=== PATIENT | male | born 1980 | race Caucasian/White ===

== ENCOUNTER → 2018-07-24 11:47 | Outpatient (CLI) | payer SELFPAY ==
--- NOTE | 2018-07-24 | DI.CT.S_ITS ---
PROCEDURE: CT CHEST WO CON INDICATIONS: Pneumonia, unspecified organism TECHNIQUE: Noncontrast 5 mm thick sections acquired from the pulmonary apices to the posterior costophrenic angles. 7 mm thick coronal and sagittal MIP reformats were then acquired. For radiation dose reduction, the following was used: automated exposure control, adjustment of mA and/or kV according to patient size. COMPARISON: None. FINDINGS: Image quality: Excellent. Lungs and pleura: There is air space in the lingula consistent with pneumonia. No pleural effusions or pneumothorax. Central and peripheral airways are patent and normal in caliber. Mediastinum: Heart size is normal. No pericardial effusion. No mediastinal adenopathy by size criteria. Thoracic aorta and central pulmonary arteries are normal in size. Esophagus is normal in caliber. Tiny hiatal hernia. Bones and chest wall: No suspicious bony lesions. No vertebral body compression fractures. No axillary or supraclavicular adenopathy by size criteria. Thyroid gland is normal. Abdomen: There is a 2.0 cm simple consistent in the superior pole of left kidney. Visualized upper abdominal solid organs and bowel loops are less appear normal in the absence of contrast. IMPRESSION: Lingular airspace opacity suspicious for pneumonia. A differential diagnosis is atelectasis. Recommend followup to resolution. Dictated by: Jimena Calabrese M.D. on 07/24/2018 at 14:11 Approved by: Jimena Calabrese M.D. on 07/24/2018 at 18:20
== END ==
PROVIDERS: PCP Internal Medicine; Visit Provider Internal Medicine
DX: J18.9 Pneumonia, unspecified organism (principal)
CPT/HCPCS: 71250